=== PATIENT | female | born 1960 | race Caucasian/White ===

== ENCOUNTER 2025-03-19 10:16 | Outpatient (CLI) | payer MEDICARE, MEDICAID ==
[~2025-03-19] VITALS: Ht 154.3 cm; Wt 61.2 kg
[2025-03-19 10:37] LABS: TOTAL HEMOGLOBIN 15.9 G/dl (12.0-16.0)
[2025-03-19] MEDS: albuterol 2.5 MG/3 ML nebule NEB ONE (11:29)
[2025-03-19 11:36] VITALS: PULSE 90; RESP 20; O2SAT 93
[2025-03-19 11:48] VITALS: PULSE 84; RESP 20
--- NOTE | 2025-03-19 15:13 | PROCEDURE NOTE - Respiratory ---
Procedure Note-Respiratory Providers to Copies To 1: WILMER TARANGO MD Procedure Name: This is a complete pulmonary function study dated March 19, 2025. Hemoglobin measurement was done as part of the study. Spirometry measurements: The forced vital capacity is at the lower limit of normal. The FEV1 shows severe reduction. The FEV1 ratio is severely reduced. All of the measured flow rates show very severe reduction. After inhaled bronchodilator was administered, there is no appreciable change in the flow volume curve. Lung volume measurements: The total lung capacity is elevated. The residual volume and functional residual capacity measurements are also elevated. This do cuments hyperinflation with gas trapping within the lungs. Lung diffusion measurement: The DLCO measurement is substantially reduced. Even when corrected for alveolar volume the lung diffusion measurement is reduced. We note that the hemoglobin measurement is normal. Airway resistance measurement: The airway resistance is significantly elevated. This again suggests significant airway obstruction. Overall conclusion: This study is severely abnormal. There is evidence for very severe obstructive ventilatory defect. This is consistent with the patient's diagnosis of smoking-related COPD. The patient shows evidence of hyperinflation with gas trapping within the lungs. These findings together with the low DLCO measurement indicates the presence of emphysema. Continued use of bronchodilator medication is recommended. We have no previous studies for comparison. Close pulmonary follow-up is recommended. WILMER TARANGO MD Mar 19, 2025 15:13
== END 2025-03-19 23:59 | disposition home or self-care (01) ==
LOC: RT 10:16
PROVIDERS: ATTEND Internal Medicine Pulmonary Disease
DX: J44.9 Chronic obstructive pulmonary disease, unspecified (principal)
CPT/HCPCS: 85018; 94060; 94727; 94729; 94760